=== PATIENT | male | born 1955 | race Caucasian/White ===

== ENCOUNTER → 2017-01-27 | Outpatient (CLI) | payer MEDICAID | LOC: NEU 10:46 | PROVIDERS: ATTEND Psychiatry & Neurology Neurology | DX: R40.4 Transient alteration of awareness (principal) | CPT/HCPCS: 95816 ==

== ENCOUNTER → 2017-02-03 | Outpatient (CLI) | payer MEDICAID | LOC: NEU 11:18 | PROVIDERS: ATTEND Psychiatry & Neurology Neurology | DX: G56.03 Carpal tunnel syndrome, bilateral upper limbs (principal); M47.9 Spondylosis, unspecified | CPT/HCPCS: 95886; 95913 ==